=== PATIENT | female | born 1950 | race Caucasian/White ===

== ENCOUNTER → 2021-08-01 | Outpatient (CLI) | payer MEDICARE, OTHER ==
[2015-05-27 10:30] VITALS: BP 170/77
--- NOTE | 2021-08-01 10:22 | RAD ---
EXAM: Abdomen sonogram. HISTORY: Chronic kidney disease. TECHNIQUE: Sonographic imaging of the abdomen was performed. COMPARISON: None. FINDINGS: The liver is normal in size. There is a 5.7 cm hyperechoic lesion within the left hepatic l obe. There is a phrygian cap within the gallbladder, a normal variant. The common bile duct is normal in caliber. The kidneys are normal in size. No solid or cystic renal lesion is seen. There is no hyd ronephrosis. The pancreas is unremarkable. There are splenic granulomas. The aorta and inferior vena cava are partially obscured due to bowel gas. IMPRESSION: 1. 5.7 cm circumscribed hyperechoic lesion within the left hepatic lobe. In the absence of known leonel gnancy, this may be a hemangioma or geographic fatty infiltration. This can be better assessed with a liver protocol CT or MRI. 2. No acute sonographic finding. Electronically signed by: Marie Whitney MD (08/01/2021 10:19 AM) [id number]
--- NOTE | 2021-08-01 11:29 | RAD ---
EXAM: CT CHEST WITHOUT CONTRAST (LDCT LUNG CANCER SCREENING). HISTORY: Risk factors for pulmonary malignancy. Cigarette smoking. TECHNIQUE: CT of the chest was performed without intravenous contrast using a low-dose lung screening protocol. Findings analysis is based on ACR Lung-RADS v1.1. *One or more of the following individual ized dose reduction techniques were utilized for this examination: 1. Automated exposure control. 2. Adjustment of the mA and/or kV according to patient size. 3. Use of iterative reconstruction technique. COMPARISON: None. FINDINGS: The heart is normal in size. The aorta is normal in caliber. There is calcified atheroscler otic plaque involving the aorta, coronary arteries and aortic arch great vessels. There is a nonspeci fic prevascular lymph node measuring 1.2 cm. There are few additional nonspecific mediastinal and hil ar lymph nodes. These are not pathologically enlarged. There is a moderate hiatal hernia. There is no pneumothorax or pleural effusion. There is a 2.0 cm groundglass opacity within the latera l right upper lobe there is a 4 mm nodule within the right middle lobe (series 2, image 136). There i s a 4 mm nodule within the left lower lobe (series 2, image 147). There is a 2 mm nodule within the l eft lower lobe (series 2, image 189). There is posterior dependent and basilar atelectasis. There is emphysema. There is hepatomegaly. Ther e are calcified hepatic and splenic granulomas. There is a 3.3 cm left adrenal nodule, the attenuatio n of which favors an adenoma. There are degenerative changes throughout the spine. There is no acute or suspicious osseous finding. IMPRESSION: 1. 2.0 cm groundglass opacity within the right upper lobe. Lung RADS category 3: 6 month follow-up is recommended. 2. Small bilateral pulmonary nodules measuring up to 4 mm. Attention the time of aforementioned follo w-up is recommended. 3. Emphysema. 4. 3.3 cm left adrenal nodule, the attenuation of which favors an adenoma. 5. Moderate hiatal hernia. Electronically signed by: Marie Whitney MD (08/01/2021 11:26 AM) [id number]
== END ==
LOC: US 10:07
PROVIDERS: ATTEND Family Medicine
DX: Z12.2 Encounter for screening for malignant neoplasm of respiratory organs (principal); I25.10 Atherosclerotic heart disease of native coronary artery without angina pectoris; K44.9 Diaphragmatic hernia without obstruction or gangrene; D35.02 Benign neoplasm of left adrenal gland; N18.9 Chronic kidney disease, unspecified; F17.210 Nicotine dependence, cigarettes, uncomplicated; I70.0 Atherosclerosis of aorta; R91.8 Other nonspecific abnormal finding of lung field; J43.9 Emphysema, unspecified
CPT/HCPCS: 71271; 76700